=== PATIENT | female | born 1990 | race African-American/Black ===

== ENCOUNTER → 2016-09-14 | Outpatient (CLI) | payer MEDICAID ==
[2016-09-14 11:15] LABS: BASO # 0.1 K/mm3 (0.0-0.2); BASO % 1.7 % (0.0-1.0); EOS % 0.6 % (0.0-3.0); LYMPH # 1.6 K/mm3 (1.5-6.5); LYMPH % 22.3 % (24.0-44.0); MEAN CORPUSCULAR HEMOGLOBIN 32.6 pg (27.0-33.0); MEAN CORPUSCULAR HGB CONC 34.5 g/dl (32.0-36.5); MEAN CORPUSCULAR VOLUME 94.3 fl (80.0-96.0); MONO # 0.3 K/mm3 (0.0-0.8); MONO % 4.2 % (0.0-5.0); NEUTROPHILS # 4.8 K/mm3 (1.8-7.7); NEUTROPHILS % 69.6 % (36.0-66.0); RED CELL DISTRIBUTION WIDTH 13.5 % (11.5-14.5); WHITE BLOOD COUNT 6.9 K/mm3 (4.0-10.0)
== END ==
LOC: M LAB 09:31
PROVIDERS: ATTEND Obstetrics & Gynecology
DX: Z34.83 Encounter for supervision of other normal pregnancy, third trimester (principal)

== ENCOUNTER → 2016-09-22 | Outpatient (CLI) | payer MEDICAID ==
--- NOTE | 2016-09-22 12:39 | REP ---
Clinical: Anatomical evaluation. Comparison: None . Findings: Examination demonstrates a single live intrauterine in cephalic presentation. motion is identified by technologist. Placenta is noted posteriorly and grade 3 without evidence for placenta previa or abruption. Amniotic fluid volume is normal. Nuchal cord cannot be excluded. Gestational age by LMP 38 weeks 0 days with TIANA 10/06/2016 . Gestational age by current measurements 39 weeks 0 days with TIANA 09/29/2016 . FHR equals 133 beats per minute. BPD 9.4 cm 38 weeks 1 day HC 32.9 cm 37 weeks 3 days AC 35.9 cm 39 weeks 6 days FL 7.8 cm 40 weeks 0 days HL 6.9 cm 39 weeks 6 days HC/AC ratio 0.91 Estimated weight 3762 grams ( 81st percentile). Biophysical profile score equals 8/8. Amniotic fluid index equals 12.6 cm. Umbilical cord SD ratio equals 2.22 Anatomical evaluation is limited by advanced age and no obvious abnormalities are identified. Impression: Single live advanced gestation in cephalic presentation demonstrating appropriate interval growth. No gross abnormalities are identified. Signed by Angelito Robles MD 09/22/2016 12:29 P
== END ==
LOC: M RAD 11:17
PROVIDERS: ATTEND Obstetrics & Gynecology
DX: O09.893 Supervision of other high risk pregnancies, third trimester (principal)

== ENCOUNTER → 2016-09-22 | Outpatient (CLI) | payer MEDICAID ==
[2016-09-22 15:18] LABS: ALBUMIN 2.9 GM/DL (3.2-5.2); ALBUMIN/GLOBULIN RATIO 0.76 (1.00-1.93); ALKALINE PHOSPHATASE 199 U/L (45-117); ALT/SGPT 25 U/L (12-78); ANION GAP 9 MEQ/L (8-16); AST/SGOT 17 U/L (15-37); BILIRUBIN,TOTAL 0.2 MG/DL (0.2-1.0); BLOOD UREA NITROGEN 4 MG/DL (7-18); CALCIUM LEVEL 8.9 MG/DL (8.5-10.1); CARBON DIOXIDE LEVEL 23 MEQ/L (21-32); CHLORIDE LEVEL 107 MEQ/L (98-107); CREATININE FOR GFR 0.46 MG/DL (0.55-1.02); GLOMERULAR FILTRATION RATE > 60.0 (>60); GLUCOSE, FASTING 74 MG/DL (70-105); POTASSIUM SERUM 3.9 MEQ/L (3.5-5.1); SODIUM LEVEL 139 MEQ/L (136-145); TOTAL PROTEIN 6.7 GM/DL (6.4-8.2)
[2016-09-23 09:13] LABS: HEPATITIS B SURFACE ANTIBODY NEGATIVE (POSITIVE)
[2016-09-23 14:26] LABS: %CD3+CD4+CD8+ 0.7 % (Not Estab.); %CD3+CD4+CD8- 16.2 % (Not Estab.); %CD3+CD4-CD8- 2.2 % (Not Estab.); ABS CD3+CD4+CD8+ 15 /uL (Not Estab.); ABS CD3+CD4+CD8- 340 /uL (Not Estab.); ABS CD3+CD4-CD8+ 1281 /uL (Not Estab.); ABS CD3+CD4-CD8- 46 /uL (Not Estab.); CD4/CD8 NYSDOH RATIO 0.27 (Not Estab.); Eosinophils 0 % (.); HCT 35.9 % (34.0-46.6); HGB 12.7 g/dL (11.1-15.9); Monocytes 7 % (.); Neutrophils 64 % (.); WBC 7.1 x10E3/uL (3.4-10.8)
== END ==
LOC: M LAB 12:52
PROVIDERS: ATTEND Internal Medicine Infectious Disease
DX: B20 Human immunodeficiency virus [HIV] disease (principal)

== ENCOUNTER 2016-10-02 00:47 | Inpatient (IN) | payer MEDICAID, OTHER ==
[~2016-10-02] VITALS: Ht 162.6 cm; Wt 82.0 kg
[2016-10-02 01:10] VITALS: BP 120/72
[2016-10-02 01:54] LABS: MEAN CORPUSCULAR HEMOGLOBIN 33.5 pg (27.0-33.0); MEAN CORPUSCULAR HGB CONC 33.8 g/dl (32.0-36.5); MEAN CORPUSCULAR VOLUME 99.1 fl (80.0-96.0); RED CELL DISTRIBUTION WIDTH 13.8 % (11.5-14.5); WHITE BLOOD COUNT 7.3 K/mm3 (4.0-10.0)
[2016-10-02] MEDS ORDERED: PENICILLIN G POTASSIUM IV 5 MU in D5W MINI-BAG PLUS 100 ML IV STA (02:24)
[2016-10-02] MEDS ORDERED: miSOPROStol 50 MCG 1/2 TAB (S0191) PO ONE (02:45)
[2016-10-02] MEDS ORDERED: miSOPROStol 50 MCG 1/2 TAB (S0191) As Ordered ONE (02:50)
[2016-10-02] MEDS ORDERED: TERBUTALINE SULFATE 1 MG/ML VIAL (J3105) As Ordered ONE (03:13)
[2016-10-02 03:20] VITALS: BP 127/58
--- NOTE | 2016-10-02 04:06 | HPEPDOC ---
Obstetrical History & Physical General Date of Admission Oct 02, 2016 at 00:47 History of Present Illness Patient is a 26-year-old female who is a at 39 weeks and 3 days gestation based on first trimester ultrasound. She received antepartum care in [place] in her first trimester. She transferred her care into the [place] and was seen by [facility] at 38 weeks gestation. Her has been complicated by her positive HIV status. She has been seen by Dr. Nino from infectious disease. Her viral load presently is less than 20. Patient has been compliant on taking antivirals through out . Patient presents to labor and delivery via ambulation for scheduled elective induction of labor. She reports active movement. Denies leaking of fluid or vaginal bleeding. 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 Her fianc is in [place] and he is the father of the baby. She will be returning to [facility] approximately 4-5 weeks after delivery. Patient is from [facility]. Patient denies any Ebola outbreaks in her area. Denies any history of abuse. Denies alcohol or drug use. Marital Status: Single Psychosocial History: No pertinent psych hx * Smoker: non-smoker Alcohol: denies Drugs: denies Abuse Violence Screening Have you been hit/kicked/slapp: No Have you been sexually assault: No Imunizations Tdap status: current Influenza Status: current Allergies Coded Allergies: No Known Allergies (Unverified , 09/12/16) Physical Examination Physical Examination GENERAL: Alert and oriented times three. BREAST: . ABDOMEN: Gravid and non-tender to touch. Multiple striae present on abdomen. FETUS: Is vertex (VTX) by sterile vaginal examination (SVE), fetus is vertex ( VTX) by Lucio. SVE: /-2, soft, anterior, no bloody show. HEART RATE: Regular rate and rhythm. LUNGS: Clear to auscultation (CTA). EXTREMITIES: No edema. No clonus. Deep tendon reflexes (DTRs) + [2]. Vital Signs/I&O Vital Signs Label Value Date Time Patient Temperature 97.8 degrees F 10/02/16 0320 Pulse 75 10/02/16 0320 Respiratory Rate 18 bpm 10/02/16 0320 Blood Pressure Assessment 127/58 (81) 10/02/16 0320 Source Automatic Cuff (NIBP) Laboratory Data [facility] Laboratory Tests 2 10/02/16 01:30: CBC/BMP Laboratory Tests 10/02/16 01:30 Red Blood Count 3.76 L, Mean Corpuscular Volume 99.1 H, Mean Corpuscular Hemoglobin 33.5 H, Mean Corpuscular Hemoglobin Concent 33.8, Red Cell Distribution Width 13.8 Pertinent Laboratoy Data Blood Type: O+ RBC Antibody Screen: Negative HIV: Positive Hepatitis B: Negative Hepatitis C: Negative Rapid Plasma Reagin: Nonreactive Rubella: Immune Varicella: Unknown Chlamydia/Gonorrhea: Unknown Group B Streptococcus: Positive Quad Screen Test: Declined Cystic Fibrosis: Declined Glucose Tolerance Test: 128 Anatomy Ultrasound Normal Anatomy: Yes Placenta Previa: No Steroid Therapy Steroid Therapy: No Vaginal Examination Dilation: 1cm Effacement: Other (50%) Station: -2 Cervical Consistency: Medium Cervical Position: Anterior Presentation: Cephalic presentation Position: Vertex (occiput) Assessment Heart Rate (FHR): 120 Variability: Moderate Accelerations: Positive Decelerations: None Tocometer Contractions: Yes Frequency: regular, other (every 2-7 minutes) Duration: greater than 60 seconds Strength: palpated as mild Multi-drug resistant Organism: No history of MDRO Assessment/Plan Assessment IUP at 39 weeks and 3 days gestation, GBS positive, HIV positive, category 1 heart rate tracing, elective induction of labor Plan Admit to labor and delivery. Patient and cousin, who is her project scheduler, counseled on risks and benefits of induction of labor. Patient consents to induction of labor. Misoprostol by mouth ordered for induction. Out of bed as tolerated. PFS to be placed on patient due to lack of resources in [place] related to formula. Patient educated on not breast-feeding but reports that formula is not readily available where she's from. Diet: Regular. Group B Streptococcus (GBS) positive. Treat with penicillin in active labor area. Labs and intravenous (IV) per unit protocol. Urine obtained and sent to lab for gonorrhea and chlamydia testing due to no testing done prenatally. Anticipate cervical ripening. Plan of care collaborated with Dr. Bolanos. MICHAEL MCLAIN CNM Oct 02, 2016 03:44 Carlos Bolanos DO Oct 02, 2016 05:10
[2016-10-02] MEDS ORDERED: FENTANYL 2MCG/ML ROPIVACAINE 0.2% NACL 250 ML CADD As Ordered ONE (04:48)
[2016-10-02] MEDS ORDERED: EPIDURAL COMMENT XX SCH (05:45)
[2016-10-02] MEDS ORDERED: FENTANYL/ROPIVACAINE/NACL CADD 250 ML EPIDURAL SCH (05:45)
[2016-10-02] MEDS ORDERED: ONDANSETRON 4MG/2ML VIAL (J2405) IV PRN (05:45)
[2016-10-02] MEDS ORDERED: REFRIGERATOR IV KEYS XX PRN (05:45)
[2016-10-02] MEDS ORDERED: EPIDURAL/PCA KEYS XX PRN (05:45)
[2016-10-02] MEDS ORDERED: NALOXONE INJ 0.4 MG/1 ML VIAL (J2310) IV PRN (05:45)
[2016-10-02] MEDS ORDERED: diphenhydrAMINE INJ 50MG/ML VIAL (J1200) IV PRN (05:45)
[2016-10-02] MEDS ORDERED: ePHEDrine SULFATE 25 MG/5 ML(5MG/ML) SYRINGE IV PRN (05:45)
[2016-10-02] MEDS ORDERED: LACTATED RINGER'S 1000 ML IV PRN (05:45)
[2016-10-02] MEDS ORDERED: PENICILLIN G POTASSIUM IV 2.5 MU in D5W 100 ML IV SCH ×2 (06:30→11:00)
[2016-10-02] MEDS ORDERED: PENICILLIN G POTASSIUM IV 5 MU in D5W MINI-BAG PLUS 100 ML IV ONE (06:45)
[2016-10-02] MEDS ORDERED: LR 1,000 ML IV SCH (09:16)
[2016-10-02] MEDS ORDERED: OXYTOCIN DRIP 30 UNITS in APPROPRIATE DILUENT 1 EA IV SCH ×2 (09:30→13:42)
[2016-10-02] MEDS ORDERED: DIBUCAINE 1% OINTMENT 30GM TOP PRN (13:45)
[2016-10-02] MEDS ORDERED: METHYLERGONOVINE MALEATE 0.2 MG TAB PO PRN (13:45)
[2016-10-02] MEDS ORDERED: RHOGAM 300 MCG (1500 IU) INJ (J2790) IM SCH (13:45)
[2016-10-02] MEDS ORDERED: MEASLES,MUMPS,RUBELLA VACCINE INJ (MMR-II) (90707) SC SCH (13:45)
[2016-10-02] MEDS: ACETAMINOPHEN 500 MG TAB PO PRN (16:41)
[2016-10-02] MEDS ORDERED: PRENTAB9 PO (17:39)
[2016-10-02] MEDS ORDERED: VIRE300T PO (17:40)
[2016-10-02 18:17] VITALS: BP 106/57
[2016-10-02] MEDS: TENOFOVIR DISOPROXIL 300 MG PO SCH (21:11)
[2016-10-02] MEDS: PERCOCET 5MG/325MG TAB PO PRN (22:11)
[2016-10-02] MEDS: DOCUSATE SODIUM 100 MG CAP PO PRN (22:11)
[2016-10-03] MEDS: PERCOCET 5MG/325MG TAB PO PRN (05:07)
[2016-10-03 05:37] VITALS: BP 115/58
[2016-10-03] MEDS: PRENATAL VITAMIN TAB PO SCH (08:26)
[2016-10-03] MEDS ORDERED: FLUCONAZOLE 50MG TABLET PO ONE (09:00)
--- NOTE | 2016-10-03 09:29 | DN ---
DATE: 10/02/2016 Marvel is a 26-year-old female 2, para 0-0-1-0 who is admitted at 39-3/7 weeks gestation for an induction. The patient has a history of positive HIV, well controlled on antiviral with a viral load less than 20. She underwent misoprostol followed by Pitocin induction. Progressed to fully dilated with meconium-stained fluid. She pushed with some deep decelerations and delivered a live male infant in right occiput anterior position with a nuchal cord times one. scores 9 and 9. weight 7 pounds 2 ounces. Baby cared for by our fire protection specialist, Dr. Garcia. The placenta delivered spontaneously intact. Three-vessel cord. Perineum, vagina, cervix inspected. A left sulcus and second-degree midline perineal laceration was noted. This was repaired using #2-0 chromic. Estimated blood loss 350 mL. Both mother and baby in stable condition. Please note that delivery was done with the assistance of Roxanna Moffett, nurse carbon electrodes supervisor.
[2016-10-03] MEDS: ACETAMINOPHEN 500 MG TAB PO PRN (10:00)
[2016-10-03] MEDS: PROCTOFOAM-HC 1% FOAM 10 GM CAN PR PRN ×2 (13:50→20:42)
[2016-10-03] MEDS: NORCO, ANEXSIA 5/325MG TABLET (HYDROcodone/ACETAMINOPHEN) PO PRN ×3 (13:50→22:50)
[2016-10-03 18:00] VITALS: BP 136/70
[2016-10-03] MEDS: TENOFOVIR DISOPROXIL 300 MG PO SCH (20:41)
[2016-10-03] MEDS: DOCUSATE SODIUM 100 MG CAP PO PRN (20:41)
[2016-10-04] MEDS: NORCO, ANEXSIA 5/325MG TABLET (HYDROcodone/ACETAMINOPHEN) PO PRN ×5 (03:13→20:18)
[2016-10-04] MEDS: PROCTOFOAM-HC 1% FOAM 10 GM CAN PR PRN (03:15)
[2016-10-04 06:10] VITALS: BP 118/57
[2016-10-04] MEDS: PRENATAL VITAMIN TAB PO SCH (08:17)
[2016-10-04] MEDS ORDERED: PERC5TAB6 PO (18:14)
--- NOTE | 2016-10-04 18:44 | DS.PDOC ---
Discharge Summary General Date of Admission Oct 02, 2016 at 00:47 Date of Discharge 10/04/16 Attending Physician: Carlos Bolanos DO Discharge Summary ADMISSION DIAGNOSES: 1. Induction of labor at 39 weeks and 3 days gestation, elective 2. Positive HIV. 3. Positive GBS. DISCHARGE DIAGNOSES: 1. Vaginal delivery at 39 weeks 3 days gestation. 2. HIV positive. 3. Left sulcus laceration and midline second-degree laceration. HISTORY OF PRESENT ILLNESS: The patient was admitted to labor and delivery for induction of labor at 39 weeks and 3 days gestation. Patient is HIV positive. She speaks fluent Iranian. She progressed to fully dilated with one dose of miso and Pitocin. Patient delivered vaginally to a living male weighing 7 lbs. 2 oz. Apgars 9 and 9. Patient received an epidural for pain management. The baby had a nuchal cord 1 loose and particulate meconium fluid. Patient had a left sulcus laceration and a second-degree midline laceration that was repaired. The patient's viral load was less than 20 and patient continue taking by mouth antivirals during hospital stay. The baby has received antivirals every 6 hours by mouth. DISCHARGE MEDICATIONS: Please see below. ALLERGIES: Please see below. PHYSICAL EXAMINATION ON DISCHARGE: VITAL SIGNS: Please see below. LABORATORY DATA: Please see below. DISCHARGE CONDITION: Stable ACTIVITY: As tolerated DIET: Regular DISCHARGE PLAN AND INSTRUCTIONS: 1. Patient to be discharged home by. A prescription was sent to her pharmacy for Motrin and vitamins. A prescription for Percocet will be sent for my office in the morning to her pharmacy. Patient is to continue antiviral medications that were prescribed by Dr. Nino. 2. Education discharge instructions done via sign language interpreter. All questions and concerns addressed. 3. Patient will follow-up in the office prior to going back to [facility]. Vital Signs/I&Os Vital Signs Date Time Temp Pulse Resp B/P Pulse Ox O2 Delivery O2 Flow Rate FiO2 10/04/16 16:27 20 10/04/16 06:10 96.9 84 118/57 10/03/16 18:00 97 10/03/16 14:28 Room Air Medications Scheduled Multivitamins/ ( 27-0.8 mg) 1 Tab Tab 1 TAB PO DAILY Tenofovir Disoproxil Fumarate (Viread) 300 Mg Tab 300 MG PO DAILY Allergies Coded Allergies: No Known Allergies (Unverified , 09/12/16) MICHAEL MCLAIN CNM Oct 04, 2016 18:44
== END 2016-10-04 20:30 | disposition home or self-care (01) | DRG 560 ==
LOC: M LDI 00:47 → M OBS 16:12
PROVIDERS: ADMIT Obstetrics & Gynecology; ATTEND Obstetrics & Gynecology
PROC: 10E0XZZ Delivery of Products of Conception, External Approach (ICD-10-PCS; principal; 2016-10-02)
PROC: 0KQM0ZZ Repair Perineum Muscle, Open Approach (ICD-10-PCS; 2016-10-02)
PROC: 3E033VJ Introduction of Other Hormone into Peripheral Vein, Percutaneous Approach (ICD-10-PCS; 2016-10-02)
PROC: 3E0DXGC Introduction of Other Therapeutic Substance into Mouth and Pharynx, External Approach (ICD-10-PCS; 2016-10-02)
DX: O98.72 Human immunodeficiency virus [HIV] disease complicating childbirth (principal); B20 Human immunodeficiency virus [HIV] disease; Z37.0 Single live birth; Z3A.39 39 weeks gestation of pregnancy; O99.820 Streptococcus B carrier state complicating pregnancy; O77.0 Labor and delivery complicated by meconium in amniotic fluid; O70.1 Second degree perineal laceration during delivery

== ENCOUNTER 2016-10-06 17:17 | Emergency (ER) | payer MEDICAID ==
[~2016-10-06 17:17] MED LIST: PERC5TAB6 PO; PRENTAB9 PO; VIRE300T PO
[2016-10-06] MEDS ORDERED: PERCOCET 5MG/325MG TAB As Ordered ONE (18:22)
--- NOTE | 2016-10-06 20:05 | EDDOCDS ---
Physician Documentation [facility] Name: Marvel Alanis Age: 26 yrs Sex: Female : 1990 Arrival Date: 10/06/2016 Time: 17:17 Bed TR7 Private MD: Carlos Bolanos Disposition: 10/06/16 19:25 Discharged to Home/Self Care. Impression: Other complications of the puerperium, not elsewhere classified - POST VAGINAL DELIVERY PAIN. - Condition is Stable. - Discharge Instructions: Vaginal Delivery, Care After. - Medication Reconciliation, Local Pharmacy Hours form. - Follow up: Carlos Bolanos MD; When: 1 - 2 days; Reason: Recheck today's complaints, Continuance of care. - Problem is new. - Symptoms have improved. - Notes: USE THE PAIN MEDICATION THAT YOU WERE GIVEN, USE THE TIAGO-CARE BOTTLE TO HELP KEEP THE AREA CLEAN, FOLLOW UP WITH DR BOLANOS Historical: - Allergies: No known drug Allergies; - Home Meds: 1. ibuprofen 800 mg Oral tab 1 tab 3 times per day as needed (Last dose: 10/06/2016 13:00) 2. Vitamin Oral tab 1 tab once daily (Last dose: 10/06/2016 08:00) 3. oxycodone-acetaminophen 5-325 mg Oral tab 1 tab every 4 hours as needed (Last dose: 10/06/2016 13:00) - PMHx: none; - PSHx: none; - Social history: Smoking status: Patient states was never smoker of tobacco. Preferred Language: Colombian, The patient speaks a little Macedonian. - Family history: Not pertinent. - : The pt / caregiver states he / she is not on anticoagulants. Home medication list is obtained from the patient. - Exposure Risk Screening:: None identified. 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 5 in. (165.10 cm) (M); Pain 8/10; 19:39 BP 129 / 84 RA Sitting (auto/reg); Pulse 67 MON; Resp 20 S; Temp 98.3(TE); Pulse Ox 97% cln on R/A; 19:50 Pain 6/10; cln 17:19 Body Mass Index 29.95 (81.65 kg, 165.10 cm) gr2 MDM: 18:17 Set up pelvic ordered. ck7 18:18 oxyCODONE-acetaminophen 5 mg-325 mg 1 tabs PO once ordered. ck7 19:39 Financial registration complete. ks16 19:40 [facility] Payment Agreement was scanned into [employer] and attached to record. [email or web address] Administered Medications: 18:26 Drug: oxyCODONE-acetaminophen 1 tabs [oxycodone-acetaminophen 5 mg-325 mg tablet (1 kpj tabs)] Route: PO; Signatures: Johnna Vaca RN RN Sirisha HolderRN RN [facility] Solomon Moore, RPA-C RPA-Cck7 Maria Elena Correa, Reg Reg [email or web address] The chart was reviewed and I authenticate all verbal orders and agree with the evaluation and treatment provided.Attachments: 19:40 [facility] Payment Agreement [email or web address] MTDD
--- NOTE | 2016-10-06 20:05 | EDDOCDS ---
Nurse's Notes [facility] Name: Marvel Alanis Age: 26 yrs Sex: Female : 1990 Arrival Date: 10/06/2016 Time: 17:17 Bed TR7 Private MD: Carlos Bolanos Diagnosis: Other complications of the puerperium, not elsewhere classified-POST VAGINAL DELIVERY PAIN Presentation: 10/06 17:36 Presenting complaint: Patient states: Vaginal delivery on Monday having pain vaginal j area where she was stitched up. Adult Sepsis Screening: The patient does not have new or worsening altered mentation. Patient's respiratory rate is less than 22. Systolic blood pressure is greater than 100. Patient has a qSOFA score of 0- Negative Sepsis Screen. Suicide/Homicide risk assessment- the patient denies having any suicidal and/or homicidal ideations and does not present with any other emotional, behavioral or mental health complaints. Status: Patient is not a medical services coordinator or dependent. Transition of care: patient was not received from another setting of care. 17:36 Acuity: KEENAN Level 4 [facility] 17:36 Method Of Arrival: Walkin/Carried/Asstd [facility] Triage Assessment: 17:42 General: Appears in no apparent distress, Behavior is appropriate for age. Pain: [facility] Location: vaginal area Pain currently is 10 out of 10 on a pain scale. HIV screening NA for this visit Offered previously. Neurological: Level of Consciousness is awake, alert. Respiratory: Airway is patent Respiratory effort is even, unlabored. : Reports pain Pain is 10 out of 10 on a pain scale. vaginal area Denies vaginal bleeding. Derm: Skin is pink, warm & dry. 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 ibuprofen 800 mg Oral tab 1 tab 3 times per day as needed (Last dose: 10/06/2016 13:00) 2. Vitamin Oral tab 1 tab once daily (Last dose: 10/06/2016 08:00) 3. oxycodone-acetaminophen 5-325 mg Oral tab 1 tab every 4 hours as needed (Last dose: 10/06/2016 13:00) - PMHx: none; - PSHx: none; - Social history: Smoking status: Patient states was never smoker of tobacco. Preferred Language: Italian, The patient speaks a little Bulgarian. - Family history: Not pertinent. - : The pt / caregiver states he / she is not on anticoagulants. Home medication list is obtained from the patient. - Exposure Risk Screening:: None identified. Screenin:40 Screening information is obtained from the patient. Fall risk: No risks identified. kpj Assistance ADL's: requires no assistance with activities of daily living. Abuse/DV Screen: The patient / caregiver reports he/she is: not in a situation that causes fear, pain or injury. Nutritional screening: No deficits noted. Advance Directives: Currently, there is no health care proxy. There is no active DNR order. There is no living will. There is no Power of Chinchilla Machine Operator. Advance directive information has not previously been placed in an [facility] medical record. Further advance directive information is declined. home support is adequate. Assessment: 18:40 General: Appears uncomfortable, Behavior is appropriate for age, pleasant. Pain: kpj Location: vaginal area Pain currently is 10 out of 10 on a pain scale. Neurological: Level of Consciousness is awake, alert. Respiratory: Airway is patent Respiratory effort is even, unlabored, Respiratory pattern is regular, symmetrical. : Reports vaginal bleeding that is light flow pain at episiotomy repair. Derm: Skin is pink, warm & dry. 20:01 General: Appears in no apparent distress, comfortable, Behavior is appropriate for age, h cooperative, first contact with patient to review discharge instructions via bow rehairer Niesha Yanes. Encouraged and answered questions, patient denies any new problems or complaints, declines offer of additional assistance and denies further needs at this time. Vital Signs: 17:19 BP 143 / 86; Pulse 67; Resp 18 S; Temp 96.4(O); Pulse Ox 100% on R/A; Weight 81.65 kg gr2 (M); Height 5 ft. 5 in. (165.10 cm) (M); Pain 8/10; 19:39 BP 129 / 84 RA Sitting (auto/reg); Pulse 67 MON; Resp 20 S; Temp 98.3(TE); Pulse Ox 97% cln on R/A; 19:50 Pain 6/10; cln 17:19 Body Mass Index 29.95 (81.65 kg, 165.10 cm) gr2 Vitals: 17:19 Log In Time: October 06, 2016 at 17:19. gr2 ED Course: 17:18 Patient visited by Niesha Yanes. gr2 17:18 Carlos Bolanos MD is Private Physician. gr2 17:18 Patient moved to Waiting gr2 17:22 Patient visited by Niesha Yanes. gr2 17:22 Patient moved to Pre RCE gr2 17:38 Triage Initiated kpj 17:45 Patient moved to Triage 3 dem1 18:09 Solomon Moore RPA-C is PHCP. ck7 18:09 Milagro Porter MD is Attending Physician. ck7 18:09 Patient visited by Solomon Moore RPA-C. ck7 18:30 Patient visited by Javad Sanchez RN. dwg 18:35 Resting quietly. Awaiting disposition. kpj 18:35 No IV's were initiated during this patient's visit. Assist provider with pelvic exam: kpj Performed by Solomon CASTELAN Patient tolerated well. visual exam only by provider. 18:40 The patient / caregiver is instructed regarding the plan of care and ED course. Patient kpj has correct armband on for positive identification. 19:13 Patient visited by Solomon Moore RPA-C. ck7 19:25 Carlos Bolanos MD is Referral Physician. ck7 19:40 [facility] Payment Agreement was scanned into [employer] and attached to record. ks16 19:41 Patient visited by Va Hirsch PCA. cln 19:51 Patient visited by Va Hirsch PCA. cln 20:01 Patient moved to [facility] Administered Medications: 18:26 Drug: oxyCODONE-acetaminophen 1 tabs [oxycodone-acetaminophen 5 mg-325 mg tablet (1 kpj tabs)] Route: PO; Order Results: There are currently no results for this order. Outcome: 19:25 Discharge ordered by Provider. ck7 20:01 Discharge Assessment: Patient awake, alert and oriented x 3. No cognitive and/or cjh functional deficits noted. Patient verbalized understanding of disposition instructions. patient administered narcotics - no. The following High Risk Discharge criteria are identified: None. Discharged to home ambulatory. Condition: good Condition: stable Condition: improved. Discharge instructions given to patient, Instructed on discharge instructions, follow up and referral plans. medication usage, Demonstrated understanding of instructions, Pt was receptive of discharge instructions/ teaching. No special radiology studies were completed. Property :Personal belongings accompany Pt. 20:04 Patient left the ED. [facility] Signatures: Javad Sanchez, RN RN Johnna Gold, RN RN Aaron Rodriguez, Palmira Bose RN1 Sirisha Watson RN RN [facility] Solomon Moore, RPA-C RPA-Cck7 Niesha Yanes gr2 Maria Elena Correa, Reg Reg ks16 Hirsch, Crystal, HEATING OPERATORS ENGINEER HEATING OPERATORS ENGINEER cln MTDD
--- NOTE | 2016-10-08 21:05 | EDDOCDS ---
Nurse's Notes [facility] Name: Marvel Alanis Age: 26 yrs Sex: Female : 1990 Arrival Date: 10/06/2016 Time: 17:17 Bed TR7 Private MD: Carlos Bolanos Diagnosis: Other complications of the puerperium, not elsewhere classified-POST VAGINAL DELIVERY PAIN Presentation: 10/06 17:36 Presenting complaint: Patient states: Vaginal delivery on Monday having pain vaginal j area where she was stitched up. Adult Sepsis Screening: The patient does not have new or worsening altered mentation. Patient's respiratory rate is less than 22. Systolic blood pressure is greater than 100. Patient has a qSOFA score of 0- Negative Sepsis Screen. Suicide/Homicide risk assessment- the patient denies having any suicidal and/or homicidal ideations and does not present with any other emotional, behavioral or mental health complaints. Status: Patient is not a service liaison representative or dependent. Transition of care: patient was not received from another setting of care. 17:36 Acuity: KEENAN Level 4 [facility] 17:36 Method Of Arrival: Walkin/Carried/Asstd [facility] Triage Assessment: 17:42 General: Appears in no apparent distress, Behavior is appropriate for age. Pain: [facility] Location: vaginal area Pain currently is 10 out of 10 on a pain scale. HIV screening NA for this visit Offered previously. Neurological: Level of Consciousness is awake, alert. Respiratory: Airway is patent Respiratory effort is even, unlabored. : Reports pain Pain is 10 out of 10 on a pain scale. vaginal area Denies vaginal bleeding. Derm: Skin is pink, warm & dry. 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 ibuprofen 800 mg Oral tab 1 tab 3 times per day as needed (Last dose: 10/06/2016 13:00) 2. Vitamin Oral tab 1 tab once daily (Last dose: 10/06/2016 08:00) 3. oxycodone-acetaminophen 5-325 mg Oral tab 1 tab every 4 hours as needed (Last dose: 10/06/2016 13:00) - PMHx: none; - PSHx: none; - Social history: Smoking status: Patient states was never smoker of tobacco. Preferred Language: Burundian, The patient speaks a little Faroese. - Family history: Not pertinent. - : The pt / caregiver states he / she is not on anticoagulants. Home medication list is obtained from the patient. - Exposure Risk Screening:: None identified. Screenin:40 Screening information is obtained from the patient. Fall risk: No risks identified. kpj Assistance ADL's: requires no assistance with activities of daily living. Abuse/DV Screen: The patient / caregiver reports he/she is: not in a situation that causes fear, pain or injury. Nutritional screening: No deficits noted. Advance Directives: Currently, there is no health care proxy. There is no active DNR order. There is no living will. There is no Power of Tank Calibrator. Advance directive information has not previously been placed in an [facility] medical record. Further advance directive information is declined. home support is adequate. Assessment: 18:40 General: Appears uncomfortable, Behavior is appropriate for age, pleasant. Pain: kpj Location: vaginal area Pain currently is 10 out of 10 on a pain scale. Neurological: Level of Consciousness is awake, alert. Respiratory: Airway is patent Respiratory effort is even, unlabored, Respiratory pattern is regular, symmetrical. : Reports vaginal bleeding that is light flow pain at episiotomy repair. Derm: Skin is pink, warm & dry. 20:01 General: Appears in no apparent distress, comfortable, Behavior is appropriate for age, h cooperative, first contact with patient to review discharge instructions via podiatrist assistant Niesha Yanes. Encouraged and answered questions, patient denies any new problems or complaints, declines offer of additional assistance and denies further needs at this time. Vital Signs: 17:19 BP 143 / 86; Pulse 67; Resp 18 S; Temp 96.4(O); Pulse Ox 100% on R/A; Weight 81.65 kg gr2 (M); Height 5 ft. 5 in. (165.10 cm) (M); Pain 8/10; 19:39 BP 129 / 84 RA Sitting (auto/reg); Pulse 67 MON; Resp 20 S; Temp 98.3(TE); Pulse Ox 97% cln on R/A; 19:50 Pain 6/10; cln 17:19 Body Mass Index 29.95 (81.65 kg, 165.10 cm) gr2 Vitals: 17:19 Log In Time: October 06, 2016 at 17:19. gr2 ED Course: 17:18 Patient visited by Niesha Yanes. gr2 17:18 Carlos Bolanos MD is Private Physician. gr2 17:18 Patient moved to Waiting gr2 17:22 Patient visited by Niesha Yanes. gr2 17:22 Patient moved to Pre RCE gr2 17:38 Triage Initiated kpj 17:45 Patient moved to Triage 3 dem1 18:09 Solomon Moore RPA-C is PHCP. ck7 18:09 Milagro Porter MD is Attending Physician. ck7 18:09 Patient visited by Solomon Moore RPA-C. ck7 18:30 Patient visited by Javad Sanchez RN. dwg 18:35 Resting quietly. Awaiting disposition. kpj 18:35 No IV's were initiated during this patient's visit. Assist provider with pelvic exam: kpj Performed by Solomon CASTELAN Patient tolerated well. visual exam only by provider. 18:40 The patient / caregiver is instructed regarding the plan of care and ED course. Patient kpj has correct armband on for positive identification. 19:13 Patient visited by Solomon Moore RPA-C. ck7 19:25 Carlos Bolanos MD is Referral Physician. ck7 19:40 [facility] Payment Agreement was scanned into [employer] and attached to record. ks16 19:41 Patient visited by Va Hirsch PCA. cln 19:51 Patient visited by Va Hirsch PCA. cln 20:01 Patient moved to [facility] 10/07 10:48 T-Sheet-- Draft Copy was scanned into [employer] and attached to record. gb Administered Medications: 10/06 18:26 Drug: oxyCODONE-acetaminophen 1 tabs [oxycodone-acetaminophen 5 mg-325 mg tablet (1 kpj tabs)] Route: PO; Order Results: There are currently no results for this order. Outcome: 19:25 Discharge ordered by Provider. ck7 20:01 Discharge Assessment: Patient awake, alert and oriented x 3. No cognitive and/or cjh functional deficits noted. Patient verbalized understanding of disposition instructions. patient administered narcotics - no. The following High Risk Discharge criteria are identified: None. Discharged to home ambulatory. Condition: good Condition: stable Condition: improved. Discharge instructions given to patient, Instructed on discharge instructions, follow up and referral plans. medication usage, Demonstrated understanding of instructions, Pt was receptive of discharge instructions/ teaching. No special radiology studies were completed. Property :Personal belongings accompany Pt. 20:04 Patient left the ED. [facility] Signatures: Javad Sanchez, RN RN Johnna Gold RN RN Aaron Rodriguez, RN RN Nicole Palma, Reg Reg gb Raghu, Palmira dem1 Sirisha WatsonRN RN [facility] Solomon Moore, RPA-C RPA-Cck7 Niesha Yanes2 Maria Elena Correa, Reg Reg ks16 Joycelyn, Va, RIM FIRE CHARGER OPERATOR RIM FIRE CHARGER OPERATOR cln Chart Complete MTDD
--- NOTE | 2016-10-08 21:05 | EDDOCDS ---
Physician Documentation [facility] Name: Marvel Alanis Age: 26 yrs Sex: Female : 1990 Arrival Date: 10/06/2016 Time: 17:17 Bed TR7 Private MD: Carlos Bolanos Disposition: 10/06/16 19:25 Discharged to Home/Self Care. Impression: Other complications of the puerperium, not elsewhere classified - POST VAGINAL DELIVERY PAIN. - Condition is Stable. - Discharge Instructions: Vaginal Delivery, Care After. - Medication Reconciliation, Local Pharmacy Hours form. - Follow up: Carlos Bolanos MD; When: 1 - 2 days; Reason: Recheck today's complaints, Continuance of care. - Problem is new. - Symptoms have improved. - Notes: USE THE PAIN MEDICATION THAT YOU WERE GIVEN, USE THE TIAGO-CARE BOTTLE TO HELP KEEP THE AREA CLEAN, FOLLOW UP WITH DR BOLANOS Historical: - Allergies: No known drug Allergies; - Home Meds: 1. ibuprofen 800 mg Oral tab 1 tab 3 times per day as needed (Last dose: 10/06/2016 13:00) 2. Vitamin Oral tab 1 tab once daily (Last dose: 10/06/2016 08:00) 3. oxycodone-acetaminophen 5-325 mg Oral tab 1 tab every 4 hours as needed (Last dose: 10/06/2016 13:00) - PMHx: none; - PSHx: none; - Social history: Smoking status: Patient states was never smoker of tobacco. Preferred Language: Indian, The patient speaks a little [place]. - Family history: Not pertinent. - : The pt / caregiver states he / she is not on anticoagulants. Home medication list is obtained from the patient. - Exposure Risk Screening:: None identified. 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 5 in. (165.10 cm) (M); Pain 8/10; 19:39 BP 129 / 84 RA Sitting (auto/reg); Pulse 67 MON; Resp 20 S; Temp 98.3(TE); Pulse Ox 97% cln on R/A; 19:50 Pain 6/10; cln 17:19 Body Mass Index 29.95 (81.65 kg, 165.10 cm) gr2 MDM: 18:17 Set up pelvic ordered. ck7 18:18 oxyCODONE-acetaminophen 5 mg-325 mg 1 tabs PO once ordered. ck7 19:39 Financial registration complete. ks16 19:40 [facility] Payment Agreement was scanned into [employer] and attached to record. 10/07 10:48 T-Sheet-- Draft Copy was scanned into [employer] and attached to record. gb Administered Medications: 10/06 18:26 Drug: oxyCODONE-acetaminophen 1 tabs [oxycodone-acetaminophen 5 mg-325 mg tablet (1 kpj tabs)] Route: PO; Signatures: Johnna Vaca RN RN Nicole Harmon, Reg Reg gb Sirisha Watson RN RN [facility] Solomon Moore, RPA-C RPA-Cck7 Maria Elena Correa, Reg Reg ks16 The chart was reviewed and I authenticate all verbal orders and agree with the evaluation and treatment provided.Attachments: 19:40 [facility] Payment Agreement 10/07 10:48 T-Sheet-- Draft Copy gb Chart Complete MTDD
--- NOTE | 2016-10-08 21:05 | EDDOCDS ---
Physician Documentation [facility] Name: Marvel Alanis Age: 26 yrs Sex: Female : 1990 Arrival Date: 10/06/2016 Time: 17:17 Bed TR7 Private MD: Carlos Bolanos Disposition: 10/06/16 19:25 Discharged to Home/Self Care. Impression: Other complications of the puerperium, not elsewhere classified - POST VAGINAL DELIVERY PAIN. - Condition is Stable. - Discharge Instructions: Vaginal Delivery, Care After. - Medication Reconciliation, Local Pharmacy Hours form. - Follow up: Carlos Bolanos MD; When: 1 - 2 days; Reason: Recheck today's complaints, Continuance of care. - Problem is new. - Symptoms have improved. - Notes: USE THE PAIN MEDICATION THAT YOU WERE GIVEN, USE THE TIAGO-CARE BOTTLE TO HELP KEEP THE AREA CLEAN, FOLLOW UP WITH DR BOLANOS Historical: - Allergies: No known drug Allergies; - Home Meds: 1. ibuprofen 800 mg Oral tab 1 tab 3 times per day as needed (Last dose: 10/06/2016 13:00) 2. Vitamin Oral tab 1 tab once daily (Last dose: 10/06/2016 08:00) 3. oxycodone-acetaminophen 5-325 mg Oral tab 1 tab every 4 hours as needed (Last dose: 10/06/2016 13:00) - PMHx: none; - PSHx: none; - Social history: Smoking status: Patient states was never smoker of tobacco. Preferred Language: Brazilian, The patient speaks a little Yemeni. - Family history: Not pertinent. - : The pt / caregiver states he / she is not on anticoagulants. Home medication list is obtained from the patient. - Exposure Risk Screening:: None identified. 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 5 in. (165.10 cm) (M); Pain 8/10; 19:39 BP 129 / 84 RA Sitting (auto/reg); Pulse 67 MON; Resp 20 S; Temp 98.3(TE); Pulse Ox 97% cln on R/A; 19:50 Pain 6/10; cln 17:19 Body Mass Index 29.95 (81.65 kg, 165.10 cm) gr2 MDM: 18:17 Set up pelvic ordered. ck7 18:18 oxyCODONE-acetaminophen 5 mg-325 mg 1 tabs PO once ordered. ck7 19:39 Financial registration complete. ks16 19:40 [facility] Payment Agreement was scanned into [employer] and attached to record. 10/07 10:48 T-Sheet-- Draft Copy was scanned into [employer] and attached to record. gb Administered Medications: 10/06 18:26 Drug: oxyCODONE-acetaminophen 1 tabs [oxycodone-acetaminophen 5 mg-325 mg tablet (1 kpj tabs)] Route: PO; Signatures: Johnna Vaca RN RN Nicole Harmon, Reg Reg gb Sirisha Watson RN RN [facility] Solomon Moore, RPA-C RPA-Cck7 Maria Elena Correa, Reg Reg ks16 The chart was reviewed and I authenticate all verbal orders and agree with the evaluation and treatment provided.Attachments: 19:40 [facility] Payment Agreement 10/07 10:48 T-Sheet-- Draft Copy gb Chart Complete MTDD
--- NOTE | 2016-10-10 14:15 | EDDOCDS ---
Physician Documentation [facility] Name: Marvel Alanis Age: 26 yrs Sex: Female : 1990 Arrival Date: 10/06/2016 Time: 17:17 Bed TR7 Private MD: Carlos Bolanos Disposition: 10/06/16 19:25 Discharged to Home/Self Care. Impression: Other complications of the puerperium, not elsewhere classified - POST VAGINAL DELIVERY PAIN. - Condition is Stable. - Discharge Instructions: Vaginal Delivery, Care After. - Medication Reconciliation, Local Pharmacy Hours form. - Follow up: Carlos Bolanos MD; When: 1 - 2 days; Reason: Recheck today's complaints, Continuance of care. - Problem is new. - Symptoms have improved. - Notes: USE THE PAIN MEDICATION THAT YOU WERE GIVEN, USE THE TIAGO-CARE BOTTLE TO HELP KEEP THE AREA CLEAN, FOLLOW UP WITH DR BOLANOS Historical: - Allergies: No known drug Allergies; - Home Meds: 1. ibuprofen 800 mg Oral tab 1 tab 3 times per day as needed (Last dose: 10/06/2016 13:00) 2. Vitamin Oral tab 1 tab once daily (Last dose: 10/06/2016 08:00) 3. oxycodone-acetaminophen 5-325 mg Oral tab 1 tab every 4 hours as needed (Last dose: 10/06/2016 13:00) - PMHx: none; - PSHx: none; - Social history: Smoking status: Patient states was never smoker of tobacco. Preferred Language: Venezuelan, The patient speaks a little Greenlandic. - Family history: Not pertinent. - : The pt / caregiver states he / she is not on anticoagulants. Home medication list is obtained from the patient. - Exposure Risk Screening:: None identified. 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 5 in. (165.10 cm) (M); Pain 8/10; 19:39 BP 129 / 84 RA Sitting (auto/reg); Pulse 67 MON; Resp 20 S; Temp 98.3(TE); Pulse Ox 97% cln on R/A; 19:50 Pain 6/10; cln 17:19 Body Mass Index 29.95 (81.65 kg, 165.10 cm) gr2 MDM: 18:17 Set up pelvic ordered. ck7 18:18 oxyCODONE-acetaminophen 5 mg-325 mg 1 tabs PO once ordered. ck7 19:39 Financial registration complete. ks16 19:40 [facility] Payment Agreement was scanned into [employer] and attached to record. ks16 10/07 10:48 T-Sheet-- Draft Copy was scanned into [employer] and attached to record. gb Administered Medications: 10/06 18:26 Drug: oxyCODONE-acetaminophen 1 tabs [oxycodone-acetaminophen 5 mg-325 mg tablet (1 kpj tabs)] Route: PO; Signatures: Johnna Vaca RN RN Nicole Harmon, Reg Reg Sirisha Watson RN RN [facility] Solomon Moore, RPA-C RPA-CckMaria Elena Zaman, Reg Reg ks16 The chart was reviewed and I authenticate all verbal orders and agree with the evaluation and treatment provided.Attachments: 19:40 [facility] Payment Agreement ks16 Chart Complete MTDD
--- NOTE | 2016-10-10 14:15 | EDDOCDS ---
Physician Documentation [facility] Name: Marvel Alanis Age: 26 yrs Sex: Female : 1990 Arrival Date: 10/06/2016 Time: 17:17 Bed TR7 Private MD: Carlos Bolanos Disposition: 10/06/16 19:25 Discharged to Home/Self Care. Impression: Other complications of the puerperium, not elsewhere classified - POST VAGINAL DELIVERY PAIN. - Condition is Stable. - Discharge Instructions: Vaginal Delivery, Care After. - Medication Reconciliation, Local Pharmacy Hours form. - Follow up: Carlos Bolanos MD; When: 1 - 2 days; Reason: Recheck today's complaints, Continuance of care. - Problem is new. - Symptoms have improved. - Notes: USE THE PAIN MEDICATION THAT YOU WERE GIVEN, USE THE TIAGO-CARE BOTTLE TO HELP KEEP THE AREA CLEAN, FOLLOW UP WITH DR BOLANOS Historical: - Allergies: No known drug Allergies; - Home Meds: 1. ibuprofen 800 mg Oral tab 1 tab 3 times per day as needed (Last dose: 10/06/2016 13:00) 2. Vitamin Oral tab 1 tab once daily (Last dose: 10/06/2016 08:00) 3. oxycodone-acetaminophen 5-325 mg Oral tab 1 tab every 4 hours as needed (Last dose: 10/06/2016 13:00) - PMHx: none; - PSHx: none; - Social history: Smoking status: Patient states was never smoker of tobacco. Preferred Language: Yemeni, The patient speaks a little Kenyan. - Family history: Not pertinent. - : The pt / caregiver states he / she is not on anticoagulants. Home medication list is obtained from the patient. - Exposure Risk Screening:: None identified. 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 5 in. (165.10 cm) (M); Pain 8/10; 19:39 BP 129 / 84 RA Sitting (auto/reg); Pulse 67 MON; Resp 20 S; Temp 98.3(TE); Pulse Ox 97% cln on R/A; 19:50 Pain 6/10; cln 17:19 Body Mass Index 29.95 (81.65 kg, 165.10 cm) gr2 MDM: 18:17 Set up pelvic ordered. ck7 18:18 oxyCODONE-acetaminophen 5 mg-325 mg 1 tabs PO once ordered. ck7 19:39 Financial registration complete. ks16 19:40 [facility] Payment Agreement was scanned into [employer] and attached to record. ks16 10/07 10:48 T-Sheet-- Draft Copy was scanned into [employer] and attached to record. gb Administered Medications: 10/06 18:26 Drug: oxyCODONE-acetaminophen 1 tabs [oxycodone-acetaminophen 5 mg-325 mg tablet (1 kpj tabs)] Route: PO; Signatures: Johnna Vaca RN RN Nicole Harmon, Reg Reg Sirisha Watson RN RN [facility] Solomon Moore, RPA-C RPA-CckMaria Elena Zaman, Reg Reg ks16 The chart was reviewed and I authenticate all verbal orders and agree with the evaluation and treatment provided.Attachments: 19:40 [facility] Payment Agreement [email or web address] Chart Complete MTDD
--- NOTE | 2016-10-10 14:16 | EDDOCDS ---
Nurse's Notes [facility] Name: Marvel Alanis Age: 26 yrs Sex: Female : 1990 Arrival Date: 10/06/2016 Time: 17:17 Bed TR7 Private MD: Carlos Bolanos Diagnosis: Other complications of the puerperium, not elsewhere classified-POST VAGINAL DELIVERY PAIN Presentation: 10/06 17:36 Presenting complaint: Patient states: Vaginal delivery on Monday having pain vaginal j area where she was stitched up. Adult Sepsis Screening: The patient does not have new or worsening altered mentation. Patient's respiratory rate is less than 22. Systolic blood pressure is greater than 100. Patient has a qSOFA score of 0- Negative Sepsis Screen. Suicide/Homicide risk assessment- the patient denies having any suicidal and/or homicidal ideations and does not present with any other emotional, behavioral or mental health complaints. 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 Transition of care: patient was not received from another setting of care. 17:36 Acuity: KEENAN Level 4 [facility] 17:36 Method Of Arrival: Walkin/Carried/Asstd [facility] Triage Assessment: 17:42 General: Appears in no apparent distress, Behavior is appropriate for age. Pain: [facility] Location: vaginal area Pain currently is 10 out of 10 on a pain scale. HIV screening NA for this visit Offered previously. Neurological: Level of Consciousness is awake, alert. Respiratory: Airway is patent Respiratory effort is even, unlabored. : Reports pain Pain is 10 out of 10 on a pain scale. vaginal area Denies vaginal bleeding. Derm: Skin is pink, warm & dry. 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 ibuprofen 800 mg Oral tab 1 tab 3 times per day as needed (Last dose: 10/06/2016 13:00) 2. Vitamin Oral tab 1 tab once daily (Last dose: 10/06/2016 08:00) 3. oxycodone-acetaminophen 5-325 mg Oral tab 1 tab every 4 hours as needed (Last dose: 10/06/2016 13:00) - PMHx: none; - PSHx: none; - Social history: Smoking status: Patient states was never smoker of tobacco. Preferred Language: Peruvian, The patient speaks a little Albanian. - Family history: Not pertinent. - : The pt / caregiver states he / she is not on anticoagulants. Home medication list is obtained from the patient. - Exposure Risk Screening:: None identified. Screenin:40 Screening information is obtained from the patient. Fall risk: No risks identified. kpj Assistance ADL's: requires no assistance with activities of daily living. Abuse/DV Screen: The patient / caregiver reports he/she is: not in a situation that causes fear, pain or injury. Nutritional screening: No deficits noted. Advance Directives: Currently, there is no health care proxy. There is no active DNR order. There is no living will. There is no Power of Land Leasing Examiner. Advance directive information has not previously been placed in an [facility] medical record. Further advance directive information is declined. home support is adequate. Assessment: 18:40 General: Appears uncomfortable, Behavior is appropriate for age, pleasant. Pain: kpj Location: vaginal area Pain currently is 10 out of 10 on a pain scale. Neurological: Level of Consciousness is awake, alert. Respiratory: Airway is patent Respiratory effort is even, unlabored, Respiratory pattern is regular, symmetrical. : Reports vaginal bleeding that is light flow pain at episiotomy repair. Derm: Skin is pink, warm & dry. 20:01 General: Appears in no apparent distress, comfortable, Behavior is appropriate for age, h cooperative, first contact with patient to review discharge instructions via flooring grader Niesha Yanes. Encouraged and answered questions, patient denies any new problems or complaints, declines offer of additional assistance and denies further needs at this time. Vital Signs: 17:19 BP 143 / 86; Pulse 67; Resp 18 S; Temp 96.4(O); Pulse Ox 100% on R/A; Weight 81.65 kg gr2 (M); Height 5 ft. 5 in. (165.10 cm) (M); Pain 8/10; 19:39 BP 129 / 84 RA Sitting (auto/reg); Pulse 67 MON; Resp 20 S; Temp 98.3(TE); Pulse Ox 97% cln on R/A; 19:50 Pain 6/10; cln 17:19 Body Mass Index 29.95 (81.65 kg, 165.10 cm) gr2 Vitals: 17:19 Log In Time: October 06, 2016 at 17:19. gr2 ED Course: 17:18 Patient visited by Niesha Yanes. gr2 17:18 Carlos Bolanos MD is Private Physician. gr2 17:18 Patient moved to Waiting gr2 17:22 Patient visited by Niesha Yanes. gr2 17:22 Patient moved to Pre RCE gr2 17:38 Triage Initiated kpj 17:45 Patient moved to Triage 3 dem1 18:09 Solomon Moore RPA-C is PHCP. ck7 18:09 Milagro Porter MD is Attending Physician. ck7 18:09 Patient visited by Solomon Moore RPA-C. ck7 18:30 Patient visited by Javad Sanchez RN. dwg 18:35 Resting quietly. Awaiting disposition. kpj 18:35 No IV's were initiated during this patient's visit. Assist provider with pelvic exam: kpj Performed by Solomon CASTELAN Patient tolerated well. visual exam only by provider. 18:40 The patient / caregiver is instructed regarding the plan of care and ED course. Patient kpj has correct armband on for positive identification. 19:13 Patient visited by Solomon Moore RPA-C. ck7 19:25 Carlos Bolanos MD is Referral Physician. ck7 19:40 [facility] Payment Agreement was scanned into [employer] and attached to record. ks16 19:41 Patient visited by Va Hirsch PCA. cln 19:51 Patient visited by Va Hirsch PCA. cln 20:01 Patient moved to [facility] 10/07 10:48 T-Sheet-- Draft Copy was scanned into [employer] and attached to record. gb Administered Medications: 10/06 18:26 Drug: oxyCODONE-acetaminophen 1 tabs [oxycodone-acetaminophen 5 mg-325 mg tablet (1 kpj tabs)] Route: PO; Order Results: There are currently no results for this order. Outcome: 19:25 Discharge ordered by Provider. ck7 20:01 Discharge Assessment: Patient awake, alert and oriented x 3. No cognitive and/or cjh functional deficits noted. Patient verbalized understanding of disposition instructions. patient administered narcotics - no. The following High Risk Discharge criteria are identified: None. Discharged to home ambulatory. Condition: good Condition: stable Condition: improved. Discharge instructions given to patient, Instructed on discharge instructions, follow up and referral plans. medication usage, Demonstrated understanding of instructions, Pt was receptive of discharge instructions/ teaching. No special radiology studies were completed. Property :Personal belongings accompany Pt. 20:04 Patient left the ED. [facility] Signatures: Javad Sanchez, RN RN Johnna Gold RN RN Aaron Rodriguez, RN RN Nicole Palma, Reg Reg gb Raghu, Palm[place] dem1 Sirisha WatsonRN RN [facility] Solomon Moore, RPA-C [id number] Niesha Yanes2 Maria Elena Correa, Reg Reg ks16 Joycelyn, Va, ORGANIZATIONAL RESEARCH CONSULTANT ORGANIZATIONAL RESEARCH CONSULTANT cln Chart Complete MTDD
== END 2016-10-06 20:04 | disposition home or self-care (01) ==
LOC: M ED 17:17
DX: O90.89 Other complications of the puerperium, not elsewhere classified (principal); R10.2 Pelvic and perineal pain

== ENCOUNTER → 2016-11-14 | Outpatient (REF) | payer OTHER, SELFPAY ==
[2016-11-14 16:03] LABS: ALBUMIN 3.8 GM/DL (3.2-5.2); ALKALINE PHOSPHATASE 184 U/L (45-117); ALT/SGPT 75 U/L (12-78); ANION GAP 6 MEQ/L (8-16); AST/SGOT 45 U/L (15-37); BILIRUBIN,TOTAL 0.3 MG/DL (0.2-1.0); BLOOD UREA NITROGEN 7 MG/DL (7-18); CALCIUM LEVEL 8.8 MG/DL (8.5-10.1); CARBON DIOXIDE LEVEL 30 MEQ/L (21-32); CHLORIDE LEVEL 105 MEQ/L (98-107); CREATININE FOR GFR 0.61 MG/DL (0.55-1.02); GLOMERULAR FILTRATION RATE > 60.0 (>60); GLUCOSE, FASTING 75 MG/DL (70-105); POTASSIUM SERUM 4.3 MEQ/L (3.5-5.1); SODIUM LEVEL 141 MEQ/L (136-145)
[2016-11-18 00:09] LABS: %CD3+CD4+CD8+ 1.1 % (Not Estab.); %CD3+CD4-CD8+ 55.8 % (Not Estab.); %CD3+CD4-CD8- 1.5 % (Not Estab.); ABS CD3+CD4+CD8+ 21 /uL (Not Estab.); ABS CD3+CD4+CD8- 342 /uL (Not Estab.); ABS CD3+CD4-CD8+ 1060 /uL (Not Estab.); ABS CD3+CD4-CD8- 29 /uL (Not Estab.); CD4/CD8 NYSDOH RATIO 0.32 (Not Estab.); Eosinophils 1 % (.); HCT 41.5 % (34.0-46.6); HGB 14.1 g/dL (11.1-15.9); Monocytes 7 % (.); Neutrophils 42 % (.); WBC 3.8 x10E3/uL (3.4-10.8)
== END ==
LOC: M SFHCPLAZ 12:36
PROVIDERS: ATTEND Internal Medicine Infectious Disease
DX: B20 Human immunodeficiency virus [HIV] disease (principal)